=== PATIENT | female | born 1990 | race Hispanic/Latino ===

== ENCOUNTER 2021-08-14 10:21 | Emergency (ER) | payer BC ==
[~2021-08-14] VITALS: Ht 175.3 cm; Wt 135.2 kg
[2021-08-14] MEDS ORDERED: IBUPROFEN IB200 MG PO (11:38)
[2021-08-14] MEDS ORDERED: CEFDINIR300 MG PO (11:38)
[2021-08-14] MEDS ORDERED: CEFTRIAXONE 1 GM VIAL IV ONE (11:45)
[2021-08-14] MEDS ORDERED: CEFTRIAXONE 1 GM VIAL ONE (12:02)
[2021-08-14] MEDS ORDERED: CEFTRIAXONE 1 GM in SODIUM CHLORIDE 0.9% 50ML 50 ML IV ONE (12:45)
== END 2021-08-14 12:10 | disposition home or self-care (01) ==
LOC: FSED 10:25
DX: N93.8 Other specified abnormal uterine and vaginal bleeding (principal); N30.91 Cystitis, unspecified with hematuria
CPT/HCPCS: 80053; 81003; 81025; 85025; 99283; J0696